=== PATIENT | female | born 1960 | race Caucasian/White ===

== ENCOUNTER 2023-09-17 12:39 | Emergency (ER) | payer MEDICARE ==
[~2023-09-17] VITALS: Ht 157.4 cm; Wt 76.7 kg
[~2023-09-17 12:39] MED LIST: ATORVASTATIN CA40 M1 PO; BISOPROLOL-HCT1 EACH PO; DULOXETINE HCL60 MG PO; ELIQUIS5 M1 PO; FOSFOMYCIN TROME3 GM PO; LEVOTHYROXINE100 MC1 PO; METHAZOLAMIDE50 MG PO; MONUROL3 G1 PO; MYRBETRIQ25 M1 PO; OMEPRAZOLE40 MG PO; ONDANSETRON4 MG SL; POTASSIUM CHLO10 MEQ PO; PROVENTIL HFA6.7 GM INH; Synthroid,Levo88 MCG PO; TENORMIN25 MG PO; VENLAFAXINE H37.5 M5 PO
== END 2023-09-17 13:12 | disposition home or self-care (01) ==
LOC: ED 12:39
DX: M25.571 Pain in right ankle and joints of right foot (principal); R73.9 Hyperglycemia, unspecified; D64.9 Anemia, unspecified; Z98.890 Other specified postprocedural states; Z91.030 Bee allergy status; Z88.8 Allergy status to other drugs, medicaments and biological substances; Z87.891 Personal history of nicotine dependence

== ENCOUNTER 2024-03-07 12:03 | Emergency (ER) | payer OTHER ==
[~2024-03-07] VITALS: Ht 157.4 cm; Wt 70.8 kg
== END 2024-03-07 15:33 | disposition home or self-care (01) ==
LOC: ED 12:03
DX: S63.501A Unspecified sprain of right wrist, initial encounter (principal); S53.401A Unspecified sprain of right elbow, initial encounter; S40.011A Contusion of right shoulder, initial encounter; K21.9 Gastro-esophageal reflux disease without esophagitis; I10 Essential (primary) hypertension; E03.9 Hypothyroidism, unspecified; Z91.030 Bee allergy status; Z88.8 Allergy status to other drugs, medicaments and biological substances; Z98.890 Other specified postprocedural states; Z87.891 Personal history of nicotine dependence; W19.XXXA Unspecified fall, initial encounter; Y93.89 Activity, other specified; Y92.89 Other specified places as the place of occurrence of the external cause; Y99.8 Other external cause status

== ENCOUNTER 2024-05-02 12:09 | Emergency (ER) | payer OTHER ==
[~2024-05-02] VITALS: Ht 160 cm; Wt 81.6 kg
[2024-05-02] MEDS ORDERED: Acetaminophen/Oxycodone 5 MG/325 MG TABLET PO ONE (12:35)
[2024-05-02] MEDS ORDERED: LIDOCAINE 1 EA PATCH T ONE (14:05)
[2024-05-02 14:48] LABS: HEMATOCRIT 41.6 % (37.0-47.0); MEAN CELL VOLUME 102.7 fl (81.0-99.0); MEAN CORPUSCULAR HGB 32.6 pg (27.0-31.0); MEAN CORPUSCULAR HGB CONC 31.7 g/dl (33.0-37.0); MEAN PLATELET VOLUME 11.4 fl (9.6-12.3); PLATELET COUNT AUTOMATED 141 10*3/uL (130-400); RED BLOOD COUNT 4.05 10*6/uL (4.10-5.10)
[2024-05-02 15:05] LABS: MANUAL DIFF REFLEX YES
[2024-05-02 15:07] LABS: BURR CELLS FEW; PLATELET SUFFICIENCY NORMAL (NORMAL); POLYCHROMASIA SLIGHT; TOTAL CELLS COUNTED 100 #CELLS
[2024-05-02 15:10] LABS: BUN 17 mg/dl (9-23); CHLORIDE 113 mmol/L (98-107); POTASSIUM 3.9 mmol/L (3.4-5.1)
[2024-05-02] MEDS ORDERED: CYCLOBENZAPRINE5 M3 PO (15:21)
[2024-05-02] MEDS ORDERED: LIDOCAINE PAIN1 EACH T (15:21)
== END 2024-05-02 15:43 | disposition home or self-care (01) ==
LOC: ED 12:09
PROVIDERS: Internal Medicine
DX: M62.830 Muscle spasm of back (principal); M54.50 Low back pain, unspecified; Z91.030 Bee allergy status; Z88.1 Allergy status to other antibiotic agents; Z79.899 Other long term (current) drug therapy; Z93.1 Gastrostomy status; Z87.891 Personal history of nicotine dependence